=== PATIENT | male | born 1995 | race African-American/Black ===

== ENCOUNTER 2021-11-25 18:23 | Emergency (ER) | payer OTHER ==
[~2021-11-25] VITALS: Ht 170.2 cm; Wt 59.0 kg
[2021-11-25 20:27] LABS: *BILIRUBIN,URIN NEGATIVE (NEGATIVE); *BLOOD, URINE TRACE (NEGATIVE); *CLARITY,URINE CLEAR (CLEAR); *COLOR,URINE YELLOW (YELLOW); *KETONES,URINE NEGATIVE (NEGATIVE); *UROBILINOGEN,URINE 0.2 E.U./dl (NORMAL); LEUKOCYTE ESTERASE ,URINE NEGATIVE (NEGATIVE); NITRITE, URINE NEGATIVE (NEGATIVE); UGLUCOSE NEGATIVE (NEGATIVE)
[2021-11-25 20:37] LABS: RBC,URINE 0-3 /HPF (0-3)
[2021-11-25 20:38] LABS: BACTERIA,URINE NONE SEEN /HPF (NONE SEEN); SQUAMOUS EPITHELIAL CELL,UR NONE SEEN /HPF (NONE SEEN)
[2021-11-25] MEDS ORDERED: HYDR-3980 PO (21:24)
[2021-11-25] MEDS ORDERED: DOXY100C5 PO (21:24)
--- NOTE | 2021-11-25 21:25 | NUR ---
HAFSA RAMÍREZ INTO DO PROCEDURE.
--- NOTE | 2021-11-25 21:40 | NUR ---
Patient discharged to home in stable condition. Written and verbal after care instructions given. Patient verbalizes understanding of instructions. Stressed follow up or return to ER for worsening s/s.
[2021-11-25 21:41] VITALS: BP 130/77
== END 2021-11-25 21:41 | disposition home or self-care (01) ==
LOC: ER 18:28
DX: N50.812 Left testicular pain (principal); F17.290 Nicotine dependence, other tobacco product, uncomplicated
CPT/HCPCS: 76870; A4663